=== PATIENT | female | born 1975 | race Caucasian/White ===

== ENCOUNTER 2019-03-10 20:59 | Emergency (ER) | payer OTHER ==
[2019-03-10 21:07] VITALS: TEMP 97.8; BMI 35.1
[2019-03-10] MEDS ORDERED: SODIUM CHLORIDE 1,000 ML IV SCH (21:15)
[2019-03-10 21:34] LABS: BASO % 0.5 % (0-2.0); EOS % 3.2 % (0-4.5); HEMATOCRIT 40.5 % (32.4-45.2); HEMOGLOBIN 13.4 GM/dL (10.7-15.3); LYMPH % 54.3 % (8-40); MCH 28.2 pg (25.7-33.7); MEAN CELL VOLUME 85.2 fl (80-96); MONO % 7.3 % (3.8-10.2); NEUT % 34.7 % (42.8-82.8); PLATELET COUNT 179 K/MM3 (134-434); RBC 4.75 M/mm3 (3.60-5.2); RDW 13.4 % (11.6-15.6); WHITE BLOOD COUNT 7.7 K/mm3 (4.0-10.0)
[2019-03-10 21:44] LABS: INR 0.94 (0.83-1.09); PROTHROMBIN TIME (PATIENT) 11.1 SEC (9.7-13.0)
[2019-03-10] MEDS ORDERED: TIMOLOL 0.5% OPHTHALMIC SOL 5 ML BOTTLE OD SCH (22:00)
[2019-03-10] MEDS ORDERED: acetaZOLAMIDE 250 MG TABLET PO SCH (22:00)
[2019-03-10 22:01] LABS: ALBUMIN 4.3 g/dl (3.4-5.0); ALK PHOS 123 U/L (45-117); ANION GAP 7 MMOL/L (8-16); BILIRUBIN,TOTAL 0.2 mg/dL (0.2-1); BLOOD UREA NITROGEN 17 mg/dL (7-18); CALCIUM 8.9 mg/dL (8.5-10.1); CHLORIDE 105 mmol/L (98-107); CHOLESTEROL 251 mg/dL (50-200); CO2 29 mmol/L (21-32); CREATININE 0.7 mg/dL (0.55-1.3); GLUCOSE,RANDOM 117 mg/dL (74-106); HDL CHOLESTEROL 45 mg/dL (40-60); POTASSIUM 3.8 mmol/L (3.5-5.1); SGOT/AST 43 U/L (15-37); SGPT/ALT 95 U/L (13-61); SODIUM 140 mmol/L (136-145); TOT PROT 8.1 g/dl (6.4-8.2); TRIGLYCERIDES 319 mg/dL (0-150)
[2019-03-10] MEDS ORDERED: FLUORESCEIN NA 1 EA STRIP OS ONE (22:04)
[2019-03-10] MEDS ORDERED: FLUORESCEIN NA 1 EA STRIP ONE (22:04)
[2019-03-10] MEDS ORDERED: TETRACAINE 0.5% HCL 0.6ML DROPPER.BOTTLE OS ONE (22:05)
--- NOTE | 2019-03-10 22:06 | PDOC ---
History of Present Illness - General Chief Complaint: CVA/TIA Stated Complaint: LEFT EYE BLEEDING Time Seen by Provider: 03/10/19 21:31 History Source: Patient Exam Limitations: No Limitations - History of Present Illness Initial Comments: 03/10/19 22:01 43 yo female pmh of pre diabetes and a benign growth (followed by Optho) in her left eye presents to the ED for sudden onset blurry vision in the left eye, decreased sensation on the left side of her face and weakness in the left hand. Pt states she was watching tv at home with her , around 9 pm felt the sensation of something crawling on her face and left eye, suddenly had left eye blurry vision and noted weakness in her left hand and decreased sensation on the left side of her face. Pt denies THIBODEAUX, LOC, confusion, N/V, fhx of cardiac disease or strokes. NIH Stroke Scale - Last Known Well Date/Time & Onset Date Last Known Well: 03/10/19 Time Last Known Well: 21:00 - Initial Evaluation Level of consciousness: Alert Ask patient the month and their age: Answers both correctly Ask patient to open & close eyes; make fist and let go: Obeys both correctly Best gaze (horizontal eye movement): Normal Visual field testing: Partial hemianopia Facial paresis (Show teeth/raise eyebrows/close eyes tight): Normal symmetrical movement Motor Function: Left Arm: Normal Motor Function: Right Arm: Normal (extends arm 90 (or 45) degrees for 10 seconds without drift Motor Function: Left Leg: Normal (extends leg 30 degrees for 5 seconds without drift) Motor Function: Right Leg: Normal (extends leg 30 degrees for 5 seconds without drift) Limb Ataxia: No ataxia Sensory(Use pinprick test arms,legs,trunk,face/side to side): Normal Best language (Describe picture, name items, read sentences): No Aphasia Dysarthria (read several words): Normal articulation Extinction and Inattention: No abnormality - Total Score NIH Stroke Scale Score: 1 Past History - Past Medical History Allergies/Adverse Reactions: Allergies Allergy/AdvReac Type Severity Reaction Status Date / Time No Known Allergies Allergy Verified 04/06/15 10:32 Home Medications: Ambulatory Orders NK [No Known Home Medication] 04/06/15 - Surgical History Abdominal Surgery: Yes - Immunization History Td Vaccination: Yes Immunization Up to Date: Yes - Suicide/Smoking/Psychosocial Hx Smoking Status: No Smoking History: Never smoked Years of Tobacco Use: 0 Number of Cigarettes Smoked Daily: 0 Cigars Per Day: 0 Hx Alcohol Use: No Drug/Substance Use Hx: No Substance Use Type: None Review of Systems - Review of Systems Constitutional: No: Chills, Fever HEENTM: Yes: Blurred Vision (left eye). No: Double Vision, Tinnitus Respiratory: No: Shortness of Breath Cardiac (ROS): No: Chest Pain, Edema ABD/GI: No: Constipated, Diarrhea, Nausea, Vomiting : No: Burning, Dysuria, Discharge, Frequency Musculoskeletal: No: Back Pain Integumentary: No: Rash Neurological: Yes: Numbness, Weakness. No: Headache, Unsteady Gait, Ataxia, Dizziness *Physical Exam - Vital Signs Last Vital Signs Temp Pulse Resp BP Pulse Ox 97.8 F 66 20 158/92 99 03/10/19 21:05 03/10/19 21:05 03/10/19 21:05 03/10/19 21:05 03/10/19 21:05 - Physical Exam General Appearance: Yes: Nourished, Appropriately Dressed. No: Apparent Distress HEENT: positive: EOMI, ARLEEN, Normal Voice, Other (20/20 right eye , 20/200 left eye on initial eval. second eval shows 20/20 right and 20/50 on left. No abrasions noted to the eye, ophtho exam shows normal disc/cup ratio, normal appearing retina and optic nerve bilaterally). negative: Photophobia Neck: positive: Supple. negative: Carotid bruit Respiratory/Chest: positive: Lungs Clear, Normal Breath Sounds. negative: Respiratory Distress, Accessory Muscle Use, Crackles, Rales, Rhonchi, Stridor, Wheezing Cardiovascular: positive: Regular Rhythm, Regular Rate, S1, S2. negative: Edema , JVD, Murmur Vascular Pulses: Dorsalis-Pedis (R): 4+, Doralis-Pedis (L): 4+ Gastrointestinal/Abdominal: positive: Flat, Soft. negative: Pulsatile Mass, Protuberent, Distended, Guarding, Rebound, Tenderness Musculoskeletal: negative: CVA Tenderness Extremity: positive: Normal Capillary Refill, Normal Inspection Integumentary: positive: Normal Color, Dry, Warm Neurologic: positive: Fully Oriented, Alert, Normal Mood/Affect, Normal Response , Motor Strength 5/5. negative: Facial Droop, Numbness, Sensory Deficit, Finger to Nose (normal), Confused, Disoriented, Depressed Affect Procedures - Lumbar Puncture Indication: Pseudotumor Cerebri CT Scan: Yes (neg) Betadine Prep: Yes Position: Left lateral decubitus Site: L4-L51 Local Anesthesia: 1% Lidocaine with epi Lumbar Puncture Kit: Adult Opening Pressure(mmHg): 26 Clear Fluid: Yes Complications: No ED Treatment Course - LABORATORY CBC & Chemistry Diagram: 03/10/19 21:11 03/10/19 21:11 - ADDITIONAL ORDERS Additional order review: Laboratory Results 03/10/19 03/10/19 21:11 21:11 PT with INR 11.10 INR 0.94 Sodium 140 Potassium 3.8 Chloride 105 Carbon Dioxide 29 Anion Gap 7 L BUN 17 Creatinine 0.7 Est GFR (CKD-EPI)AfAm 121.27 Est GFR (CKD-EPI)NonAf 104.64 Random Glucose 117 H Calcium 8.9 Total Bilirubin 0.2 AST 43 H ALT 95 H Alkaline Phosphatase 123 H Creatine Kinase 98 Troponin I < 0.02 Total Protein 8.1 Albumin 4.3 Triglycerides 319 H Cholesterol 251 H Total LDL Cholesterol 170 H HDL Cholesterol 45 03/10/19 21:11 RBC 4.75 MCV 85.2 MCHC 33.0 RDW 13.4 MPV 10.0 Neutrophils % 34.7 L Lymphocytes % 54.3 H Monocytes % 7.3 Eosinophils % 3.2 Basophils % 0.5 - RADIOLOGY Radiology Studies Ordered: Category Date Time Status HEAD CT (STROKE) [CT] Stat CT Scan 03/10/19 21:09 Ordered Medical Decision Making - Medical Decision Making 43 yo female pmh of pre diabetes and a benign growth (followed by Optho) in her left eye presents to the ED for sudden onset blurry vision in the left eye, decreased sensation on the left side of her face and weakness in the left hand. Pt states she was watching tv at home with her , around 9 pm felt the sensation of something crawling on her face and left eye, suddenly had left eye blurry vision and noted weakness in her left hand and decreased sensation on the left side of her face. Pt denies THIBODEAUX, LOC, confusion, N/V, fhx of cardiac disease or strokes. Vitals WNL blood glucose wnl code stroke called Head CT neg for acute stroke Blood work shows elevated trig and LDL, otherwise wnl 20/20 right eye , 20/200 left eye on initial eval. second eval shows 20/20 right and 20/50 on left. No abrasions noted to the eye, ophtho exam shows normal disc/cup ratio, normal appearing retina and optic nerve bilaterally. Denies pain in the eye. AXEL EOMI bilaterally 03/10/19 22:[address] Alexis, ESR/CRP recommended, if negative, will transfer to [facility] for possible central artery occlusion vs glaucoma vs optic neuritis Neuro consulted, TIA/emboli considered along with pseudo tumor cerebri, LP done with consent, no complications, see procedure note Pt continued to show improvement in visual acuity with left eye 20/40 and no complaints of sensory or strength deficits. [facility] accepts pt, Dr. Valerio in Optho and Dr. Romano in the ED for an ED - ED transfer Pt consents for transfer. Pt left the ED with acls *DC/Admit/Observation/Transfer Diagnosis at time of Disposition: TIA (transient ischemic attack), Retinal amaurosis fugax - Discharge Dispostion Disposition: TRANSFER ACUTE CARE/OTHER HOSP Condition at time of disposition: Stable Decision to Admit order: No - Referrals - Patient Instructions - Post Discharge Activity
[2019-03-10] MEDS ORDERED: TETRACAINE 0.5% OPHTH SOLN 2 ML BOTTLE ONE (22:07)
[2019-03-11] MEDS ORDERED: MORPHINE SULFATE 2 MG/ML VIAL ONE (00:30)
[2019-03-11] MEDS ORDERED: ACETAMINOPHEN 1000 MG/100 ML VIAL (NON FORMULARY) IVPB ONE (00:51)
[2019-03-11] MEDS ORDERED: METOCLOPRAMIDE HCL 10 MG TABLET (FP) PO ONE ×2 (00:52→00:53)
[2019-03-11] MEDS ORDERED: ACETAMINOPHEN INJECTION 100 ML IVPB ONE (00:52)
--- NOTE | 2019-03-11 01:01 | PDOC ---
Documentation entered by Leilani Garcia SCRIBE, acting as scribe for Ginger Ricardo MD. Ginger Ricardo MD: This documentation has been prepared by the Radha dejesus Nirvannie, SCRIBE, under my direction and personally reviewed by me in its entirety. I confirm that the documentation accurately reflects all work, treatment, procedures, and medical decision making performed by me. Attending Attestation - Resident Resident Name: Kareem Vinson - ED Attending Attestation I have performed the following: I have examined & evaluated the patient, The case was reviewed & discussed with the resident, I agree w/resident's findings & plan - HPI HPI: 03/10/19 22:03 The patient is a 43 year old female, with a significant past medical history of prediabetes and asthma, who presents to the emergency department with, acute loss of vision to left eye. As per patient, she was sitting at home when she felt as if something hit her eye and began to lose vision in the eye. She denies any headache, dizziness, lightheadedness, LOC, or trauma to the eye. Allergies: NKDA - Physicial Exam PE: 03/10/19 22:40 GENERAL: Awake, alert, and fully oriented, in no acute distress EYES: No pain to the eyes. No hardness or increased pressure. Left eye: EOMI. Redness to the conjunctiva. Paleness to the left retina. NECK: Normal ROM, supple, no lymphadenopathy, JVD, or masses LUNGS: Breath sounds equal, clear to auscultation bilaterally. No wheezes, and no crackles HEART: Regular rate and rhythm, normal S1 and S2, no murmurs, rubs or gallops ABDOMEN: Soft, nontender, normoactive bowel sounds. No guarding, no rebound. No masses EXTREMITIES: No clubbing or cyanosis. No cords, erythema, or tenderness NEUROLOGICAL: Decreased sensation to the left side of the face. Pt. notes difficulty moving left side of face but, during conversation moves face without difficulty. On examination patient lacks effort in the left arm and left leg but , during conversation moves without difficulty. Reflexes are intact and equal throughout. SKIN: Warm, Dry, normal turgor, no rashes or lesions noted. - Medical Decision Making 03/10/19 22:[address] head. Ophtho was called and they recommend transferring the patient for pain less vision loss. 03/10/19 22:24 Pt will be treated with acetazolamide and timolol drops, as she has a mixed picture of left eye redness and vision loss. 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 03/11/19 01:[address] Romano in the ER at [facility]. and Dr. Valerio from Ophtho residency made his attending aware and they also will see the patient. 03/11/19 01:08 Pt has an elevated to 37; must consider temporal arteritis, though it is remote given her age. Pt has normal basic labs however cholesterol and trigycerides are high. LFTs are bumped likely due to fatty liver. Procedures - Lumbar Puncture Indication: other (painless vision loss; left sided weakness reported) CT Scan: Yes (normal) Betadine Prep: Yes Position: Left lateral decubitus Site: L4-L51 Local Anesthesia: 1% Lidocaine with epi Volume(ml): 5 Lumbar Puncture Kit: Adult Opening Pressure(mmHg): 26 Traumatic Tap: No Tubes Obtained: 4 Clear Fluid: Yes Complications: No
[2019-03-11 01:29] VITALS: BP 127/77; PULSE 76
[2019-03-11 02:25] LABS: BF GLUCOSE (CSF ONLY) 65 mg/dL (40-70)
[2019-03-11 04:06] LABS: CSF APPEARANCE CLEAR; CSF COLOR COLORLESS; CSF WBC 0
--- NOTE | 2019-03-11 09:53 | EKG ---
Test Reason : Blood Pressure : / mmHG Vent. Rate : 072 BPM Atrial Rate : 072 BPM P-R Int : 154 ms QRS Dur : 086 ms QT Int : 400 ms P-R-T Axes : 029 001 065 degrees QTc Int : 438 ms NORMAL SINUS RHYTHM MINIMAL VOLTAGE CRITERIA FOR LVH, MAY BE NORMAL VARIANT NONSPECIFIC T WAVE ABNORMALITY ABNORMAL ECG NO PREVIOUS ECGS AVAILABLE Confirmed by GAYLA GRAYSON MD ([id number]) on 03/11/2019 9:53:17 AM Referred By: Confirmed By:GAYLA GRAYSON MD
== END 2019-03-11 01:32 | disposition short-term general hospital (02) ==
LOC: JER 20:59
PROC: 3E033GC Introduction of Other Therapeutic Substance into Peripheral Vein, Percutaneous Approach (ICD-10-PCS; principal; 2019-03-10)
PROC: 3E033NZ Introduction of Analgesics, Hypnotics, Sedatives into Peripheral Vein, Percutaneous Approach (ICD-10-PCS; 2019-03-10)
DX: G45.9 Transient cerebral ischemic attack, unspecified (principal); G45.3 Amaurosis fugax; R73.03 Prediabetes; D36.9 Benign neoplasm, unspecified site
CPT/HCPCS: 36415; 70450-TC; 80053; 82465; 82550; 82945; 82962; 83718; 83721; 84157; 84478; 84484; 85025; 85610; 85651; 86140; 86850; 86900; 86901; 87070; 87205; 93005; 93010; 99285-25; J0131; J7030

== ENCOUNTER 2020-12-20 17:55 | Emergency (ER) | payer OTHER ==
[2020-12-20 18:09] VITALS: BMI 37.2
[2020-12-20] MEDS ORDERED: SODIUM CHLORIDE 0.9% 500 ML INFUS.BAG IV ONE (18:35)
[2020-12-20] MEDS ORDERED: morphine CARPU-JECT 4 MG/1 ML DISP.SYRIN IVPUSH ONE ×2 (18:35→22:08)
[2020-12-20] MEDS ORDERED: morphine SULFATE 4 MG/ML VIAL ONE (19:07)
[2020-12-20 19:26] LABS: BASO % 0.4 % (0-2.0); EOS % 2.4 % (0-4.5); HEMATOCRIT 39.9 % (32.4-45.2); HEMOGLOBIN 13.4 GM/dL (10.7-15.3); LYMPH % 37.2 % (8-40); MCHC 33.6 g/dl (32.0-36.0); MEAN CELL VOLUME 86.3 fl (80-96); MEAN PLT VOLUME 10.5 fl (7.5-11.1); MONO % 6.2 % (3.8-10.2); NEUT % 53.8 % (42.8-82.8); PLATELET COUNT 190 K/MM3 (134-434); RBC 4.62 M/mm3 (3.60-5.2); RDW 13.3 % (11.6-15.6); WHITE BLOOD COUNT 7.5 K/mm3 (4.0-10.0)
[2020-12-20 19:37] LABS: INR 0.94 (0.83-1.09); PROTHROMBIN TIME (PATIENT) 11.4 SEC (9.7-13.0)
[2020-12-20 19:40] LABS: ACTIVATED PTT 29.3 SECONDS (25.2-36.5)
[2020-12-20 19:46] LABS: POTASSIUM 3.6 mmol/L (3.5-5.1)
[2020-12-20 19:50] LABS: CALCIUM 9.4 mg/dL (8.5-10.1)
[2020-12-20 19:51] LABS: ALBUMIN 4.3 g/dl (3.4-5.0); BLOOD UREA NITROGEN 19.6 mg/dL (7-18)
[2020-12-20 19:53] LABS: CREATININE 0.7 mg/dL (0.55-1.3)
[2020-12-20 19:56] LABS: BILIRUBIN,TOTAL 0.3 mg/dL (0.2-1); TOT PROT 8.7 g/dl (6.4-8.2)
[2020-12-20] MEDS ORDERED: HYDROmorphone HCL CARPU-JECT 2 MG/1 ML DISP.SYRIN IVPUSH ONE (19:59)
[2020-12-20] MEDS ORDERED: HYDROmorphone HCl 2 MG/ML VIAL ONE (20:03)
[2020-12-20] MEDS ORDERED: MORPHINE SULFATE 2 MG/ML VIAL ONE (21:54)
[2020-12-20 23:16] VITALS: BP 125/76; PULSE 79; TEMP 98.6
== END 2020-12-20 23:39 | disposition home or self-care (01) ==
LOC: JER 17:55
PROC: 3E033NZ Introduction of Analgesics, Hypnotics, Sedatives into Peripheral Vein, Percutaneous Approach (ICD-10-PCS; principal; 2020-12-20)
PROC: 3E033NZ Introduction of Analgesics, Hypnotics, Sedatives into Peripheral Vein, Percutaneous Approach (ICD-10-PCS; 2020-12-20)
PROC: 3E033NZ Introduction of Analgesics, Hypnotics, Sedatives into Peripheral Vein, Percutaneous Approach (ICD-10-PCS; 2020-12-20)
DX: S82.852A Displaced trimalleolar fracture of left lower leg, initial encounter for closed fracture (principal)
CPT/HCPCS: 36415; 73590-TC-LT-FY; 73610-TC-LT-FY; 73630-TC-LT; 80053; 85025; 85610; 85730; 86850; 86900; 86901; 99285-25

== ENCOUNTER 2020-12-31 07:49 | Day surgery (SDC) | payer OTHER ==
[2020-12-28 12:44] VITALS: BMI 37.2
[2020-12-31] MEDS ORDERED: ROPIVACAINE HCL 0.5% 30ML VIAL ONE ×2 (09:01→09:06)
[2020-12-31] MEDS ORDERED: MIDAZOLAM HCL 2 MG/2 ML SINGLE DOSE VIAL ONE ×2 (09:01→09:33)
[2020-12-31] MEDS ORDERED: PROPOFOL 20 ML ONE (09:43)
[2020-12-31] MEDS ORDERED: ROCURONIUM BROMIDE 50 MG/5 ML VIAL ONE (09:43)
[2020-12-31] MEDS ORDERED: ONDANSETRON 4 MG/2 ML VIAL IVPUSH PRN (12:48)
[2020-12-31] MEDS ORDERED: PROMETHAZINE HCL 25 MG/1 ML VIAL IVPUSH PRN (12:48)
[2020-12-31] MEDS ORDERED: oxyCODONE HCL 5 MG TABLET PO PRN (12:48)
[2020-12-31] MEDS ORDERED: LACTATED RINGERS SOLUTION 1,000 ML IV SCH (13:00)
[2020-12-31] MEDS ORDERED: ONDANSETRON 4 MG/2 ML VIAL ONE (13:27)
[2020-12-31 14:36] VITALS: TEMP 98.1
[2020-12-31 14:58] VITALS: BP 111/67; PULSE 92
== END 2020-12-31 15:10 | disposition home or self-care (01) ==
LOC: FASU 07:49
PROVIDERS: ATTEND Orthopaedic Surgery Sports Medicine
PROC: 0QSH04Z Reposition Left Tibia with Internal Fixation Device, Open Approach (ICD-10-PCS; 2020-12-31)
PROC: 0QSK04Z Reposition Left Fibula with Internal Fixation Device, Open Approach (ICD-10-PCS; principal; 2020-12-31 09:00)
DX: S82.842A Displaced bimalleolar fracture of left lower leg, initial encounter for closed fracture (principal); X58.XXXA Exposure to other specified factors, initial encounter; Y93.9 Activity, unspecified; Y92.9 Unspecified place or not applicable; Y99.9 Unspecified external cause status
CPT/HCPCS: 27814; C1713; 73610-TC-LT-FY; 94760

== ENCOUNTER 2024-02-22 12:08 | Emergency (ER) | payer OTHER ==
[2024-02-22 12:46] VITALS: TEMP 97.9; BMI 36.3
[2024-02-22 14:19] LABS: BASO % 0.5 % (0-2.0); EOS % 1.5 % (0-4.5); HEMATOCRIT 42.8 % (32.4-45.2); HEMOGLOBIN 14.1 GM/dL (10.7-15.3); LYMPH % 38.5 % (8-40); MCH 28.3 pg (25.7-33.7); MEAN CELL VOLUME 85.9 fl (80-96); MEAN PLT VOLUME 9.5 fl (7.5-11.1); MONO % 6.2 % (3.8-10.2); NEUT % 53.3 % (42.8-82.8); PLATELET COUNT 197 10^3/uL (134-434); RBC 4.98 M/mm3 (3.60-5.2); RDW 13.2 % (11.6-15.6); WHITE BLOOD COUNT 5.8 K/mm3 (4.0-10.0)
[2024-02-22 14:21] LABS: PH,URINE 5.5 (5.0-8.0); URINE APPEARANCE CLEAR; URINE BILIRUBIN NEGATIVE (NEGATIVE); URINE COLOR YELLOW; URINE GLUCOSE (UA) NEGATIVE (NEGATIVE); URINE KETONE TRACE (NEGATIVE); URINE LEUK ESTERASE NEGATIVE (NEGATIVE); URINE NITRITE NEGATIVE (NEGATIVE); URINE PROTEIN NEGATIVE (NEGATIVE); URINE UROBILINOGEN 0.2 mg/dL (0.2-1.0)
[2024-02-22 14:24] LABS: HCG,QUALITATIVE URINE Negative
[2024-02-22 14:38] LABS: CALCIUM 9.8 mg/dL (8.5-10.1)
[2024-02-22 14:39] LABS: BLOOD UREA NITROGEN 15.1 mg/dL (7-18)
[2024-02-22 14:42] LABS: CREATININE 0.6 mg/dL (0.55-1.3)
[2024-02-22 14:43] LABS: BILIRUBIN,TOTAL 0.6 mg/dL (0.2-1); TOT PROT 8.3 g/dl (6.4-8.2)
[2024-02-22 17:51] VITALS: BP 119/84; PULSE 70; RESP 19
== END 2024-02-22 18:06 | disposition home or self-care (01) ==
LOC: JER 12:08
DX: G40.409 Other generalized epilepsy and epileptic syndromes, not intractable, without status epilepticus (principal); T41.45XA Adverse effect of unspecified anesthetic, initial encounter; Z20.822 Contact with and (suspected) exposure to COVID-19
CPT/HCPCS: 0241U-QW; 36415; 70450-TC; 80053; 81003; 83605; 84484; 84703; 85025; 87086; 93005; 93010; 99285-25